=== PATIENT | female | born 1970 | race African-American/Black ===

== ENCOUNTER → 2017-05-20 | Outpatient (CLI) | payer OTHER ==
[~2017-05-20] MED LIST: BIRTH CONTROL; DROSPIRENONE-E1 EACH PO; FLEXERIL PO; IBUPROFEN 600600 M1 PO; MIRALAX255 GM PO; NORCO 5-325 TA1 EACH PO; OCELLA 3 MG-0.1 EACH PO; PEPCID40 MG PO; VALIUM5 MG PO
== END ==
LOC: RAD 10:54
DX: Z12.31 Encounter for screening mammogram for malignant neoplasm of breast (principal)

== ENCOUNTER → 2017-09-03 | Outpatient (CLI) | payer OTHER | LOC: RAD 08:07 | DX: M25.551 Pain in right hip (principal) ==

== ENCOUNTER → 2018-06-15 | Outpatient (CLI) | payer OTHER | LOC: ULTRA 13:03 | DX: N83.202 Unspecified ovarian cyst, left side (principal); N83.201 Unspecified ovarian cyst, right side; N92.6 Irregular menstruation, unspecified ==

== ENCOUNTER → 2018-07-20 | Outpatient (CLI) | payer OTHER | LOC: ULTRA 08:11 | DX: N83.02 Follicular cyst of left ovary (principal); N83.291 Other ovarian cyst, right side; D25.9 Leiomyoma of uterus, unspecified ==

== ENCOUNTER → 2018-10-13 | Outpatient (CLI) | payer OTHER | LOC: ULTRA 13:29 | DX: M79.604 Pain in right leg (principal); Z86.718 Personal history of other venous thrombosis and embolism ==

== ENCOUNTER → 2018-10-13 | Outpatient (CLI) | payer OTHER | LOC: CAT 13:39 | DX: Z13.6 Encounter for screening for cardiovascular disorders (principal); E78.00 Pure hypercholesterolemia, unspecified; I25.10 Atherosclerotic heart disease of native coronary artery without angina pectoris ==